=== PATIENT | female | born 1975 | race Caucasian/White ===

== ENCOUNTER 2018-04-22 15:54 | Emergency (ER) | payer OTHER ==
[~2018-04-22] VITALS: Ht 160 cm; Wt 72.6 kg
[2018-04-22 16:01] VITALS: Ht 160 cm; Wt 72.6 kg
[2018-04-22 19:38] VITALS: BP 100/69
== END 2018-04-22 19:38 | disposition home or self-care (01) ==
LOC: ED 15:54
DX: G47.00 Insomnia, unspecified (principal); E86.0 Dehydration; F41.9 Anxiety disorder, unspecified

== ENCOUNTER 2019-06-12 14:59 | Emergency (ER) | payer OTHER ==
[~2019-06-12] VITALS: Ht 167.6 cm; Wt 75.7 kg
[2019-06-12 15:07] VITALS: BP 112/65; Ht 167.6 cm; Wt 75.7 kg
[2019-06-12 15:36] LABS: BASOPHIL % 0.6 % (0-2); PLATELET COUNT 317 x10^3mcL (130-400); RED CELL DISTRIBUTION WIDTH 12.9 % (11.5-14.5)
[2019-06-12 15:45] LABS: CALCIUM 9.1 mg/dL (8.5-10.1); CARBON DIOXIDE 28.1 mmol/L (21-32); CHLORIDE SERUM 102 mmol/L (98-107); CREATININE SERUM 0.7 mg/dL (0.6-1.0); GFR1 > 60 mL/min; GLUCOSE SERUM 145 mg/dL (74-106); POTASSIUM SERUM 3.5 mmol/L (3.5-5.1); SODIUM SERUM 137 mmol/L (136-145)
[2019-06-12 15:49] LABS: ALBUMIN 3.8 g/dL (3.4-5.0); ALKALINE PHOSPHATASE 98 U/L (46-116); AST/SGOT 30 U/L (15-37); BILIRUBIN TOTAL 0.58 mg/dL (0.20-1.00); TOTAL PROTEIN, SERUM 7.4 g/dL (6.4-8.2)
[2019-06-12 16:03] LABS: ALT/SGPT 66 U/L (14-59)
== END 2019-06-12 16:50 | disposition home or self-care (01) ==
LOC: ED 14:59
PROVIDERS: Emergency Medicine
DX: F41.9 Anxiety disorder, unspecified (principal); R20.0 Anesthesia of skin; M79.602 Pain in left arm
CPT/HCPCS: J1885; Q0092